=== PATIENT | female | born 1980 | race Caucasian/White ===

== ENCOUNTER 2017-04-07 22:10 | Inpatient (IN) | payer BC ==
[~2017-04-07] VITALS: Ht 172.7 cm; Wt 148.1 kg
[2017-04-08 13:13] VITALS: BP 125/71
[2017-04-08 18:15] VITALS: BP 148/83
[2017-04-08 20:12] VITALS: BP 160/80
[2017-04-09] VITALS: BP 136/78
[2017-04-09 04:10] VITALS: BP 158/80
[2017-04-09 06:38] LABS: HEMATOCRIT 38.3 % (36.0-46.0); HEMOGLOBIN 12.2 G/DL (11.9-15.5); MCH 24.3 PG (29.0-34.0); MCHC 31.9 G/DL (30.0-36.0); MCV 76.3 FL (83-99); PLATELET COUNT 328 K/uL (156-360); RBC DIS.WIDTH-CV 15.1 % (11.8-14.6); RBC DIS.WIDTH-SD 41.9 % (39-53); RED BLOOD COUNT 5.02 M/uL (3.80-5.20); WHITE BLOOD COUNT 13.8 K/uL (4.1-10.2)
[2017-04-09 07:07] LABS: CHLORIDE 102 MEQ/L (99-109); CREATININE 0.7 MG/DL (0.6-1.3); GFR ESTIMATE (CALCULATED) > 59 mL/min/; GLUCOSE 146 mg/dL (70-99); MAGNESIUM 1.9 mg/dl (1.3-2.7); PHOSPHORUS 2.7 mg/dL (2.5-4.9); POTASSIUM 5.1 MEQ/L (3.7-5.4); SODIUM 139 MEQ/L (136-147); UREA NITROGEN (BUN) 11 mg/dL (9-23)
[2017-04-09 07:41] VITALS: BP 138/90
== END 2017-04-09 11:02 | disposition home or self-care (01) | DRG 621 ==
LOC: ENRESERV 22:10 → 2SOUTH 04-08 11:49 → ENRESERV 04-08 15:45 → 2EAST 04-08 18:10
PROVIDERS: Surgery
PROC: 0DB64Z3 Excision of Stomach, Percutaneous Endoscopic Approach, Vertical (ICD-10-PCS; principal; 2017-04-08)
DX: E66.01 Morbid (severe) obesity due to excess calories (principal); Z68.42 Body mass index [BMI] 45.0-49.9, adult; F41.1 Generalized anxiety disorder; Z88.0 Allergy status to penicillin; Z88.2 Allergy status to sulfonamides
CPT/HCPCS: 80048; 82948; 83735; 84100; 85027; C9113; J0131; J0330; J0690; J1100; J1170; J1580; J1644; J1650; J2250; J2270; J2405; J2550; J2710; J2765; J3010; J3480; J7050; J7120; S0020